=== PATIENT | male | born 1970 | race Caucasian/White ===

== ENCOUNTER 2019-04-04 10:15 | Outpatient (RCR) | payer MEDICAID, SELFPAY ==
[2019-03-21 10:55] VITALS: BP 161/119; PULSE 99; RESP 20; TEMP 37.1
--- NOTE | 2019-03-21 13:06 | HP.PCM_ITS ---
(1) Ulcer of right lower extremity with fat layer exposed Status: Chronic Current Visit: Yes Code(s): L97.912 - Non-pressure chronic ulcer of unspecified part of right lower leg with fat layer exposed (2) Bilateral edema of lower extremity Status: Chronic Current Visit: Yes Code(s): R60.0 - Localized edema (3) Morbid obesity Status: Chronic Current Visit: Yes Code(s): E66.01 - Morbid (severe) obesity due to excess calories History of Present Illness Date of Service: 03/21/19 Chief Complaint: Non healing right leg ulcer. History of Wound: Mr. Brunner is a 48-year-old who presents to the wound center due to nonhealing right leg ulcer. Said to have been present for about 6 to 8 weeks. Denies any known precepitating factor but worsened after bumping it. He was seen by his primary care physician and started on antibiotics per patient after culture was taken however, no significant improvement was noted. Denies any known history of diabetes mellitus. Also denies tobacco abuse. Feels well otherwise at this time. Past Medical History Past Medical History: Chronic Problems (Last Updated 06/14/17 @ 09:55 by Isabel Kaur) Ulcer of right lower extremity with fat layer exposed (Chronic) Bilateral edema of lower extremity (Chronic) Morbid obesity (Chronic) Peripheral edema (Chronic) Hypertension (Chronic) Acute on chronic diastolic (congestive) heart failure (Chronic) Other secondary pulmonary hypertension (Chronic) Abnormal nuclear stress test (Chronic) Non-rheumatic tricuspid valve insufficiency (Chronic) Nonrheumatic mitral (valve) insufficiency (Chronic) Allergies/Adverse Reactions: Allergies No Known Allergies Allergy (Verified 03/21/19 11:17) Home Medications: Ambulatory Orders Medication Instructions Recorded colchicine 0.6 mg capsule 0.6 mg PO BID PRN 06/14/17 furosemide 40 mg tablet 40 mg PO QDAY 06/14/17 metoprolol tartrate 50 mg tablet 25 - 50 mg PO BID 06/14/17 Smoking Status: Never smoker Review of Systems Constitutional: Denies: Anorexia, Chills, Fever Eyes: Denies: Pain, Redness HEENT: Denies: Difficulty Swallowing Cardiovascular: Denies: Chest Pain, Chest Pressure Respiratory: Denies: Hemoptysis, Wheezing Gastrointestinal: Denies: Hematemesis, Vomiting Skin: Denies: Jaundice - Physical Exam Vital Signs Temp Pulse Resp BP 98.7 F 99 20 H 161/119 H 03/21/19 10:55 03/21/19 10:55 03/21/19 10:55 03/21/19 10:55 General: Alert, Oriented x3, Cooperative, No apparent distress HEENT: Atraumatic, Normocephalic Oral: Moist Mucosa Neck: Supple Lungs: Normal air movement Cardiovascular: Regular rate, Regular Rhythm, Normal S1, Normal S2 Abdomen: Non Tender, Obese Extremities: No cyanosis, Edema Skin: Ulcer/ Wound Wound Measurements and Assessment WC - Nurse 1 - General Ulcer Measurement Start: 03/21/19 10:55 Freq: Status: Active Protocol: Activity Type Activity Date Activity User E-Sign Co-Sign Detail Recorded Client Recorded Date Recorded By Document 03/21/19 10:55 [facility] [id number] 03/21/19 11:11 [facility] 03/21/19 10:55 Wound Center Nurse 1 [Ulcer Assessment] #1- R VALE CLUSTER -Combined with other wound No -Current Size (cm) - Length 8.9 -Current Size (cm) - Width 6.1 -Current Size (cm) - Depth 0.1 -Total Square Cm 54.29 -Date of Last Picture (Recall this 03/21/19 field) -Photo Taken Yes -Epithelialization None Present -Tunneling No -Undermining/Tunneling No -Circular Undermining No -Exudate Amt Medium -Exudate Type Serous -Wound Margin Flat & Intact -Granulation Amt Medium (34-66%) -Granulation Quality Red -Slough/Fibrin Yes -Necrosis Amt Medium (34-66%) -Necrotic Tissue Type Adherent Slough -Texture (Echo-wound Skin Appearance) Assessed, Excoriation, Scarring -Moisture (Echo-wound Skin Appearance Assessed, ) Maceration -Color (Echo-wound Skin Appearance) Assessed, Erythema,Palor -Temperature (Echo-wound Skin No Abnormality Appearance) (Pt Warm) -Tenderness on Palpation (Echo-wound No Skin Appearance) -Ulcer Cleansing Rinsed/ Irrigated with Saline -Foul Odor after Cleansing No -Anesthetic Used 4% Lidocaine Solution [Edema Assessment] -Lower Limb Edema Present Yes -Right Calf (cm) 57 -Right Ankle (cm) 34.6 -Left Calf (cm) 56.6 -Left Ankle (cm) 34.6 WC - Nurse 2 - General Ulcer CM Notes Start: 03/21/19 10:55 Freq: Status: Active Protocol: Activity Type Activity Date Activity User E-Sign Co-Sign Detail Recorded Client Recorded Date Recorded By Document 03/21/19 11:39 MW [id number] 03/21/19 11:43 MW 03/21/19 11:39 Wound Center Nurse 2 [Procedure/Treatment] #1- R AKANKSHA CLUSTER -Time 11:39 -Correct Patient Yes -Correct Side, Site, Position Yes -Correct Procedure Yes -Procedure Performed Yes -Type of Procedure Debridement -Clinical Debridement Subcutaneous -Post Debridement Size (cm) - Length 9.0 -Post Debridement Size (cm) - Width 6.5 -Post Debridement Size (cm) - Depth 0.1 -Total Square Cm 58.50 -Wound/Ulcer Outcome Not Healed -Ulcer Cleansing Rinsed/ Irrigated with Saline -Foul Odor after Cleansing No -Bioengineered Tissue No -Bleeding Controlled with Pressure -Offloading No -Treatment Response Procedure Tolerated Well [See Physician Procedure note for Specifics] Pain Scale: 0-10 Numeric [Pain] -Is Patient Pain Free? Yes Musculoskeletal: No Muscle Wasting Neurological: Cranial nerves II-XII grossly intact Psych/Mental Status: Normal Affect Debridement Note Post-Debridement Measurements/Treatment WC - Nurse 2 - General Ulcer CM Notes Start: 03/21/19 10:55 Freq: Status: Active Protocol: Activity Type Activity Date Activity User E-Sign Co-Sign Detail Recorded Client Recorded Date Recorded By Document 03/21/19 11:39 MW [id number] 03/21/19 11:43 MW 03/21/19 11:39 Wound Center Nurse 2 #1- R VALE CLUSTER -Time 11:39 -Correct Patient Yes -Correct Side, Site, Position Yes -Correct Procedure Yes -Procedure Performed Yes -Type of Procedure Debridement -Clinical Debridement Subcutaneous -Post Debridement Size (cm) - Length 9.0 -Post Debridement Size (cm) - Width 6.5 -Post Debridement Size (cm) - Depth 0.1 -Total Square Cm 58.50 -Wound/Ulcer Outcome Not Healed -Ulcer Cleansing Rinsed/ Irrigated with Saline -Foul Odor after Cleansing No -Bioengineered Tissue No -Bleeding Controlled with Pressure -Offloading No -Treatment Response Procedure Tolerated Well Pain Scale: 0-10 Numeric Is Patient Pain Free? Yes Wound debrided: Right leg Type of Debridement: Excisional debridement Anesthesia Used: 4% Lidocaine Solution Depth: Down to and including healthy tissue, in the subcutaneous layer Percentage of wound debrided: 100 Instrument Used: 5mm curette Tissue Removed: Slough and devitalized tissue Severity: Fat Layer Exposed Amount of bleeding with debridement: Mild Bleeding Controlled with: Pressure Patient tolerated procedure well Assessment/Plan Active Problems (Last Updated 06/14/17 @ 09:55 by Isabel Kaur) Ulcer of right lower extremity with fat layer exposed (Chronic) Bilateral edema of lower extremity (Chronic) Morbid obesity (Chronic) Assessment: Nonhealing right lower extremity ulcer. Bilateral lower extremity edema. History of hypertension and morbid obesity. Plan: Debridement done as documented above. Procedure was well-tolerated. No cultures taken today. Will reassess need for at next visit. Venous and arterial studies ordered. Records also requested. Aquacel extra with ABD over top. 3M wraps for edema management. Leave in place till Monday for nurse visit/change. He was advised to elevate his lower extremities when seated and in bed. Avoid idle standing. Exercise as tolerated and weight loss also recommended. His questions were answered and he was advised to call with any further questions or concerns. Follow-up in a week with me. This note was generated with [employer] dictation software. It may contain incorrect words, spelling, and punctuation that were not noted in checking the note before signing. Multi Select Codes - Visit Charges Office Visit/Consults: 37531 OV L4 Est - Integumentary Integumentary CPT Codes: 15583 Madelaine subq tissue 20 sq cm/<
[2019-03-25 09:51] VITALS: BP 181/34; PULSE 123; RESP 18; TEMP 36.3
--- NOTE | 2019-03-28 08:13 | ART_ITS ---
Reason For Study: Leg ulcer Procedure A bilateral lower extremity continuous wave Doppler with analog waveform analysis,segmental pressures,and ankle brachial indexes without exercise. Left Segmental Pressures Left brachial= 158mmHg. Left posterior tibial artery = 188mmHg. Left dorsalis pedis artery = 189mmHg. Left digit = 134 mmHg. The left dorsalis pedis waveforms are triphasic. The left posterior tibial artery waveforms are triphasic. Right Segmental Pressures Right brachial= 150mmHg. Right posterior tibial artery = 187mmHg. Right dorsalis pedis artery = 179mmHg. Right digit = 143 mmHg. The right dorsalis pedis waveforms are triphasic. The right posterior tibial artery waveforms are triphasic. Indices The right ankle brachial index by the dorsalis pedis is 1.13. The right ankle brachial index by the posterior tibial artery is 1.18. The right digital-brachial index is 0.91. The left ankle brachial index by the dorsalis pedis is 1.20. The left ankle brachial index by the posterior tibial artery is 1.19. The left digital-brachial index is 0.85. Interpretation Summary Triphasic Doppler waveforms are noted at ankle level bilaterally. Pulse-volume recording waveform amplitudes are satisfactory at calf and ankle level bilaterally, but diminished at digital level bilaterally. Resting ankle-brachial indices are normal bilaterally. Digital-brachial indices are normal bilaterally. There is no evidence of significant arterial occlusive disease in the lower extremities bilaterally. Ordering Physician: Tamica Gifford Referring Physician: Cruz Mora Performed By: Amber Andino RVT
--- NOTE | 2019-03-28 08:13 | VDLE_ITS ---
Reason For Study: Edema RIGHT LEFT FV is compressible, spontaneous, phasic, FV is compressible, spontaneous, phasic, competent and demonstrates normal competent and demonstrates normal augmentation. augmentation. POP V is compressible, spontaneous, phasic, POP V is compressible, spontaneous, phasic, competent and demonstrates normal competent and demonstrates normal augmentation. augmentation. T/P Trunk is compressible. T/P Trunk is compressible. PTV is compressible. PTV is compressible. RT PerV is compressible. LT PerV is compressible. CFV and SFJ visualized with color and doppler CFV and SFJ visualized with color and doppler only. only. FV mid-dist visualized with color only. FV mid-dist visualized with color only. SFJ is competent and measures 1.34 x 1.64 cm. SFJ is competent and measures 1.21 x 1.28 cm. GSV proximal thigh measures 0.53 x 0.54 cm. GSV proximal thigh measures 0.61 x 0.59 cm. GSV at knee measures 0.59 x 0.58 cm. GSV above knee is competent. GSV INCOMPETENT throughout for greater than GSV at knee measures 0.42 x 0.48 cm. 0.5 seconds. GSV below knee is INCOMPETENT for greater ASV proximal thigh is INCOMPETENT for greater than 0.5 seconds. than 0.5 seconds and measures 0.49 x 0.49 cm. ASV proximal thigh is INCOMPETENT for greater ASV proximal calf is INCOMPETENT for greater than 0.5 seconds and measures 0.77 x 0.79 cm. than 0.5 seconds and measures 0.54 x 0.52 cm. SSV at junction is competent and measures SSV at junction is competent and measures 0.62 x 0.75 cm. 0.74 x 0.83 cm. Procedure Exam performed in department. Pt unable to tolerate compression in bilateral groin and mid-distal thigh. A preliminary report was called and/or faxed to . Interpretation Summary Deep veins of the lower extremities are patent bilaterally. There is no evidence of deep vein thrombosis on either side. Valvular competence appears intact within the proximal deep venous systems bilaterally. The great saphenous veins appear bilaterally patent and compressible segmentally. Sapheno-femoral junctions are bilaterally competent . The right great saphenous vein appears segmentally incompetent. The left great saphenous vein appears competent above the knee. The left great saphenous vein appears incompetent below the knee. Small saphenous veins are patent and competent bilaterally. Incompetent accessory saphenous veins are noted in the right proximal thigh and proximal calf. An incompetent accessory saphenous vein is noted in the left proximal thigh. Ordering Physician: Tamica Gifford Referring Physician: Cruz Mora Performed By: Amber Andino RVT
[2019-03-28 10:08] VITALS: BP 167/120; PULSE 119; RESP 18; TEMP 35.8
--- NOTE | 2019-03-28 10:42 | PN.PCM_ITS ---
(1) Ulcer of right lower extremity with fat layer exposed Status: Chronic Current Visit: Yes Code(s): L97.912 - Non-pressure chronic ulcer of unspecified part of right lower leg with fat layer exposed (2) Bilateral edema of lower extremity Status: Chronic Current Visit: Yes Code(s): R60.0 - Localized edema (3) Morbid obesity Status: Chronic Current Visit: Yes Code(s): E66.01 - Morbid (severe) obesity due to excess calories Type of Wound Date of Service: 03/28/19 Chief Complaint: Non healing right leg ulcer. History of Wound: Mr. Brunner is a 48-year-old who presents to the wound center due to nonhealing right leg ulcer. Said to have been present for about 6 to 8 weeks. Denies any known precepitating factor but worsened after bumping it. He was seen by his primary care physician and started on antibiotics per patient after culture was taken however, no significant improvement was noted. Denies any known history of diabetes mellitus. Also denies tobacco abuse. Feels well otherwise at this time. Progress of Wound: Improving. No new concerns at this time. - Physical Exam Vital Signs Temp Pulse Resp BP 96.5 F L 119 H 18 167/120 H 03/28/19 10:08 03/28/19 10:08 03/28/19 10:08 03/28/19 10:08 General: Alert, Oriented x3, Cooperative, No apparent distress HEENT: Atraumatic, Normocephalic Oral: Moist Mucosa Neck: Supple Abdomen: Non Tender, Obese Extremities: Edema Skin: Ulcer/ Wound Wound Measurements and Assessment WC - Nurse 1 - General Ulcer Measurement Start: 03/21/19 10:55 Freq: Status: Active Protocol: Activity Type Activity Date Activity User E-Sign Co-Sign Detail Recorded Client Recorded Date Recorded By Document 03/25/19 09:51 DL [id number] 03/25/19 10:11 DL Document 03/28/19 10:08 BM [id number] 03/28/19 10:21 BMF 03/25/19 03/28/19 09:51 10:08 Wound Center Nurse 1 [Ulcer Assessment] #1- R VALE CLUSTER -Combined with other wound No -Current Size (cm) - Length 11.2 -Current Size (cm) - Width 8.8 -Current Size (cm) - Depth 0.1 -Total Square Cm 98.56 -Photo Taken No -Epithelialization None Present -Tunneling No -Undermining/Tunneling No -Circular Undermining No -Exudate Amt Small Medium -Exudate Type Serosanguineous Serosanguineous -Wound Margin Distinct, Flat & Intact Outline Attached -Granulation Amt None Present (0 Small (1-33%) %) -Granulation Quality Red -Slough/Fibrin Yes -Necrosis Amt Large (67-100%) Large (67-100%) -Necrotic Tissue Type Adherent Slough Adherent Slough -Structure Exposed N/A -Texture (Echo-wound Skin Appearance) Scarring Assessed, Scarring -Moisture (Echo-wound Skin Appearance Dry/Scaly Assessed,Dry/ ) Scaly -Color (Echo-wound Skin Appearance) Hemosiderin Assessed, Staining Hemosiderin Staining -Temperature (Echo-wound Skin No Abnormality No Abnormality Appearance) (Pt Warm) (Pt Warm) -Tenderness on Palpation (Echo-wound No Yes Skin Appearance) -Ulcer Cleansing Wound Cleanser Rinsed/ Irrigated with Saline -Foul Odor after Cleansing No No -Anesthetic Used 4% Lidocaine Solution [Edema Assessment] -Lower Limb Edema Present Yes -Right Calf (cm) 53 53.8 -Right Ankle (cm) 33.8 32.6 WC - Nurse 2 - General Ulcer CM Notes Start: 03/21/19 10:55 Freq: Status: Active Protocol: Activity Type Activity Date Activity User E-Sign Co-Sign Detail Recorded Client Recorded Date Recorded By Document 03/28/19 10:38 MW [id number] 03/28/19 10:41 MW 03/28/19 10:38 Wound Center Nurse 2 [Procedure/Treatment] #1- R VALE CLUSTER -Time 10:39 -Correct Patient Yes -Correct Side, Site, Position Yes -Correct Procedure Yes -Procedure Performed Yes -Type of Procedure Debridement -Clinical Debridement Subcutaneous -Post Debridement Size (cm) - Length 8.5 -Post Debridement Size (cm) - Width 4.5 -Post Debridement Size (cm) - Depth 0.1 -Total Square Cm 38.25 -Wound/Ulcer Outcome Not Healed -Ulcer Cleansing Rinsed/ Irrigated with Saline -Foul Odor after Cleansing No -Bioengineered Tissue No -Bleeding Controlled with Pressure -Offloading No -Treatment Response Procedure Tolerated Well [See Physician Procedure note for Specifics] Pain Scale: 0-10 Numeric [Pain] -Is Patient Pain Free? Yes Musculoskeletal: No Muscle Wasting Neurological: Cranial nerves II-XII grossly intact Psych/Mental Status: Normal Affect Debridement Note Post-Debridement Measurements/Treatment WC - Nurse 2 - General Ulcer CM Notes Start: 03/21/19 10:55 Freq: Status: Active Protocol: Activity Type Activity Date Activity User E-Sign Co-Sign Detail Recorded Client Recorded Date Recorded By Document 03/21/19 11:39 MW [id number] 03/21/19 11:43 MW Document 03/28/19 10:38 MW [id number] 03/28/19 10:41 MW 03/21/19 03/28/19 11:39 10:38 Wound Center Nurse 2 #1- R VALE CLUSTER -Time 11:39 10:39 -Correct Patient Yes Yes -Correct Side, Site, Position Yes Yes -Correct Procedure Yes Yes -Procedure Performed Yes Yes -Type of Procedure Debridement Debridement -Clinical Debridement Subcutaneous Subcutaneous -Post Debridement Size (cm) - Length 9.0 8.5 -Post Debridement Size (cm) - Width 6.5 4.5 -Post Debridement Size (cm) - Depth 0.1 0.1 -Total Square Cm 58.50 38.25 -Wound/Ulcer Outcome Not Healed Not Healed -Ulcer Cleansing Rinsed/ Rinsed/ Irrigated with Irrigated with Saline Saline -Foul Odor after Cleansing No No -Bioengineered Tissue No No -Bleeding Controlled with Pressure Pressure -Offloading No No -Treatment Response Procedure Procedure Tolerated Well Tolerated Well Pain Scale: 0-10 Numeric Is Patient Pain Free? Yes Yes Wound debrided: Right Leg Type of Debridement: Excisional debridement Anesthesia Used: 4% Lidocaine Solution Depth: Down to and including healthy tissue, in the subcutaneous layer Percentage of wound debrided: 100 Instrument Used: 7mm curette Tissue Removed: Slough and devitalized tissue Severity: Fat Layer Exposed Amount of bleeding with debridement: Mild Bleeding Controlled with: Pressure Patient tolerated procedure well Assessment/Plan Active Problems (Last Updated 06/14/17 @ 09:55 by Isabel Kaur) Ulcer of right lower extremity with fat layer exposed (Chronic) Bilateral edema of lower extremity (Chronic) Morbid obesity (Chronic) Assessment: Nonhealing right lower extremity ulcer. Bilateral lower extremity edema. History of hypertension and morbid obesity. Plan: Debridement done as documented above. Procedure was well tolerated. Improving. Venous and arterial studies ordered at last visit, awaiting result. Continue Aquacel extra with ABD over top. 3M wraps for edema management. Leave in place till Monday for nurse visit/change. He was advised to elevate his lower extremities when seated and in bed. Avoid idle standing. Exercise as tolerated and weight loss also recommended. His questions were answered and he was advised to call with any further questions or concerns. Follow-up in a week with me. This note was generated with [employer] dictation software. It may contain incorrect words, spelling, and punctuation that were not noted in checking the note before signing. Code Visit 111xxx-[id number]: 29358 Madelaine subq tissue 20 sq cm/< - additional sq cm debrided. Please refer to clinical note.
[2019-04-01 13:25] VITALS: BP 178/113; PULSE 115; RESP 18; TEMP 36.2
[2019-04-04 10:36] VITALS: BP 163/112; PULSE 105; RESP 18; TEMP 36.7
--- NOTE | 2019-04-04 13:09 | PN.PCM_ITS ---
(1) Ulcer of right lower extremity with fat layer exposed Status: Chronic Current Visit: Yes Code(s): L97.912 - Non-pressure chronic ulcer of unspecified part of right lower leg with fat layer exposed (2) Bilateral edema of lower extremity Status: Chronic Current Visit: Yes Code(s): R60.0 - Localized edema (3) Morbid obesity Status: Chronic Current Visit: Yes Code(s): E66.01 - Morbid (severe) obesity due to excess calories Type of Wound Date of Service: 04/04/19 Chief Complaint: Non healing right leg ulcer. History of Wound: Mr. Brunner is a 48-year-old who presents to the wound center due to nonhealing right leg ulcer. Said to have been present for about 6 to 8 weeks. Denies any known precepitating factor but worsened after bumping it. He was seen by his primary care physician and started on antibiotics per patient after culture was taken however, no significant improvement was noted. Denies any known history of diabetes mellitus. Also denies tobacco abuse. Feels well otherwise at this time. Progress of Wound: Minimal Improvement. No new concerns. - Physical Exam Vital Signs Temp Pulse Resp BP 98.1 F 105 H 18 163/112 H 04/04/19 10:36 04/04/19 10:36 04/04/19 10:36 04/04/19 10:36 General: Alert, Oriented x3, Cooperative, No apparent distress HEENT: Atraumatic, Normocephalic Oral: Moist Mucosa Neck: Supple Lungs: Normal air movement Abdomen: Non Tender, Obese Extremities: No cyanosis, Edema Skin: Ulcer/ Wound Wound Measurements and Assessment WC - Nurse 1 - General Ulcer Measurement Start: 03/21/19 10:55 Freq: Status: Active Protocol: Activity Type Activity Date Activity User E-Sign Co-Sign Detail Recorded Client Recorded Date Recorded By Document 04/01/19 13:25 MW [id number] 04/01/19 13:33 MW Document 04/04/19 10:36 RB [id number] 04/04/19 10:38 RB 04/01/19 04/04/19 13:25 10:36 Wound Center Nurse 1 [Ulcer Assessment] #1- R VALE CLUSTER -Combined with other wound No No -Current Size (cm) - Length 8.5 -Current Size (cm) - Width 5.5 -Current Size (cm) - Depth 0.1 -Total Square Cm 46.75 -Tunneling No -Undermining/Tunneling No -Circular Undermining No -Exudate Amt Medium -Exudate Type Serosanguineous -Wound Margin Flat & Intact -Granulation Amt Medium (34-66%) -Granulation Quality [place] -Slough/Fibrin Yes -Necrosis Amt Small (1-33%) -Necrotic Tissue Type Adherent Slough -Structure Exposed N/A -Texture (Echo-wound Skin Appearance) Assessed -Moisture (Echo-wound Skin Appearance Maceration ) -Color (Echo-wound Skin Appearance) Assessed -Temperature (Echo-wound Skin No Abnormality Appearance) (Pt Warm) -Tenderness on Palpation (Echo-wound No Skin Appearance) -Ulcer Cleansing Wound Cleanser -Foul Odor after Cleansing No -Anesthetic Used 4% Lidocaine Solution [Edema Assessment] -Lower Limb Edema Present Yes Yes -Right Calf (cm) 53.5 52.5 -Right Ankle (cm) 34.5 33 WC - Nurse 2 - General Ulcer CM Notes Start: 03/21/19 10:55 Freq: Status: Active Protocol: Activity Type Activity Date Activity User E-Sign Co-Sign Detail Recorded Client Recorded Date Recorded By Document 04/04/19 11:14 MW [id number] 04/04/19 11:17 MW 04/04/19 11:14 Wound Center Nurse 2 [Procedure/Treatment] #1- R VALE CLUSTER -Time 11:16 -Correct Patient Yes -Correct Side, Site, Position Yes -Correct Procedure Yes -Procedure Performed Yes -Type of Procedure Debridement -Clinical Debridement Subcutaneous -Post Debridement Size (cm) - Length 8.0 -Post Debridement Size (cm) - Width 4.5 -Post Debridement Size (cm) - Depth 0.1 -Total Square Cm 36.00 -Wound/Ulcer Outcome Not Healed -Ulcer Cleansing Rinsed/ Irrigated with Saline -Foul Odor after Cleansing No -Bioengineered Tissue No -Bleeding Controlled with Pressure -Offloading No -Treatment Response Procedure Tolerated Well [See Physician Procedure note for Specifics] Pain Scale: 0-10 Numeric [Pain] -Is Patient Pain Free? Yes Musculoskeletal: No Muscle Wasting Neurological: Cranial nerves II-XII grossly intact Psych/Mental Status: Normal Affect Debridement Note Post-Debridement Measurements/Treatment WC - Nurse 2 - General Ulcer CM Notes Start: 03/21/19 10:55 Freq: Status: Active Protocol: Activity Type Activity Date Activity User E-Sign Co-Sign Detail Recorded Client Recorded Date Recorded By Document 03/21/19 11:39 MW [id number] 03/21/19 11:43 MW Document 03/28/19 10:38 MW [id number] 03/28/19 10:41 MW Document 04/04/19 11:14 MW [id number] 04/04/19 11:17 MW 03/21/19 03/28/19 04/04/19 11:39 10:38 11:14 Wound Center Nurse 2 #1- R VALE CLUSTER -Time 11:39 10:39 11:16 -Correct Patient Yes Yes Yes -Correct Side, Site, Position Yes Yes Yes -Correct Procedure Yes Yes Yes -Procedure Performed Yes Yes Yes -Type of Procedure Debridement Debridement Debridement -Clinical Debridement Subcutaneous Subcutaneous Subcutaneous -Post Debridement Size (cm) - Length 9.0 8.5 8.0 -Post Debridement Size (cm) - Width 6.5 4.5 4.5 -Post Debridement Size (cm) - Depth 0.1 0.1 0.1 -Total Square Cm 58.50 38.25 36.00 -Wound/Ulcer Outcome Not Healed Not Healed Not Healed -Ulcer Cleansing Rinsed/ Rinsed/ Rinsed/ Irrigated with Irrigated with Irrigated with Saline Saline Saline -Foul Odor after Cleansing No No No -Bioengineered Tissue No No No -Bleeding Controlled with Pressure Pressure Pressure -Offloading No No No -Treatment Response Procedure Procedure Procedure Tolerated Well Tolerated Well Tolerated Well Pain Scale: 0-10 Numeric Is Patient Pain Free? Yes Yes Yes Wound debrided: Right Leg Type of Debridement: Excisional debridement Anesthesia Used: 4% Lidocaine Solution Depth: Down to and including healthy tissue, in the subcutaneous layer Percentage of wound debrided: 100 Instrument Used: 5mm curette Tissue Removed: Slough and devitalized tissue Severity: Fat Layer Exposed Amount of bleeding with debridement: Mild Bleeding Controlled with: Pressure Patient tolerated procedure well Assessment/Plan Active Problems (Last Updated 06/14/17 @ 09:55 by Isabel Kaur) Ulcer of right lower extremity with fat layer exposed (Chronic) Bilateral edema of lower extremity (Chronic) Morbid obesity (Chronic) Assessment: Nonhealing right lower extremity ulcer. Bilateral lower extremity edema. History of hypertension and morbid obesity. Plan: Debridement done as documented above. Procedure was well tolerated. No sgnificnat change in the past week. Cultures taken. Switch to Fibrochol with adaptic over top. Continue 3M wraps for edema management. Leave in place for a week. He was advised to elevate his lower extremities when seated and in bed. Avoid idle standing. Exercise as tolerated and weight loss also recommended. His questions were answered and he was advised to call with any further questions or concerns. He states that he is scheduled to follow up with his PCP on Monday for his chronically elevated BP. Follow-up in a week.. This note was generated with [employer] dictation software. It may contain incorrect words, spelling, and punctuation that were not noted in checking the note before signing. Code Visit 111xxx-113xx: 38247 Madelaine subq tissue 20 sq cm/< - 16 additional sq cm debrided. Total debrided 36 sq cm
== END 2019-04-06 23:59 ==
LOC: WC 10:15
PROVIDERS: PCP Nurse Practitioner Primary Care; Referring Provider Internal Medicine; Visit Provider Internal Medicine
DX: L97.812 Non-pressure chronic ulcer of other part of right lower leg with fat layer exposed (principal); E66.01 Morbid (severe) obesity due to excess calories; R60.0 Localized edema; I11.0 Hypertensive heart disease with heart failure; I50.32 Chronic diastolic (congestive) heart failure; I27.29 Other secondary pulmonary hypertension
CPT/HCPCS: 11042; 11045; 29581; 87070; 87075; 87077; 87186; 87205; 93923; 93970; 99212; 99213; G0463

== ENCOUNTER 2019-05-02 09:30 | Outpatient (RCR) | payer MEDICAID, SELFPAY ==
[2019-04-07 01:06] VITALS: BP 163/112; PULSE 105; RESP 18; TEMP 36.7
[2019-04-11 10:55] VITALS: BP 140/113; PULSE 111; RESP 22; TEMP 36.9
--- NOTE | 2019-04-11 11:48 | PN.PCM_ITS ---
(1) Ulcer of right lower extremity with fat layer exposed Status: Chronic Current Visit: Yes Code(s): L97.912 - Non-pressure chronic ulcer of unspecified part of right lower leg with fat layer exposed (2) Bilateral edema of lower extremity Status: Chronic Current Visit: Yes Code(s): R60.0 - Localized edema (3) Peripheral edema Status: Chronic Current Visit: Yes Code(s): R60.9 - Edema, unspecified Type of Wound Date of Service: 04/11/19 Chief Complaint: Non healing right leg ulcer. History of Wound: Mr. Brunner is a 48-year-old who presents to the wound center due to nonhealing right leg ulcer. Said to have been present for about 6 to 8 weeks. Denies any known precepitating factor but worsened after bumping it. He was seen by his primary care physician and started on antibiotics per patient after culture was taken however, no significant improvement was noted. Denies any known history of diabetes mellitus. Also denies tobacco abuse. Feels well otherwise at this time. Progress of Wound: Improving. He however reports increased drainage and pain. - Physical Exam Vital Signs Temp Pulse Resp BP 98.5 F 111 H 22 H 140/113 H 04/11/19 10:55 04/11/19 10:55 04/11/19 10:55 04/11/19 10:55 General: Alert, Oriented x3, Cooperative, No apparent distress HEENT: Atraumatic, Normocephalic Oral: Moist Mucosa Neck: Supple Abdomen: Non Tender, Obese Skin: Ulcer/ Wound Wound Measurements and Assessment WC - Nurse 1 - General Ulcer Measurement Start: 04/11/19 10:55 Freq: Status: Active Protocol: Activity Type Activity Date Activity User E-Sign Co-Sign Detail Recorded Client Recorded Date Recorded By Document 04/11/19 10:55 DL [id number] 04/11/19 11:06 DL 04/11/19 10:55 Wound Center Nurse 1 [Ulcer Assessment] #1- R VALE CLUSTER -Current Size (cm) - Length 5.5 -Current Size (cm) - Width 4.2 -Current Size (cm) - Depth 0.1 -Total Square Cm 23.10 -Photo Taken No -Exudate Amt Medium -Exudate Type Serosanguineous -Wound Margin Distinct, Outline Attached -Granulation Amt Medium (34-66%) -Granulation Quality Red -Necrosis Amt Medium (34-66%) -Necrotic Tissue Type Adherent Slough -Structure Exposed N/A -Texture (Echo-wound Skin Appearance) Scarring -Moisture (Echo-wound Skin Appearance Dry/Scaly ) -Color (Echo-wound Skin Appearance) Hemosiderin Staining -Temperature (Echo-wound Skin No Abnormality Appearance) (Pt Warm) -Tenderness on Palpation (Echo-wound No Skin Appearance) -Ulcer Cleansing Wound Cleanser -Foul Odor after Cleansing No -Anesthetic Used 4% Lidocaine Solution [Edema Assessment] -Right Calf (cm) 52 -Right Ankle (cm) 31.5 WC - Nurse 2 - General Ulcer CM Notes Start: 04/11/19 10:55 Freq: Status: Active Protocol: Activity Type Activity Date Activity User E-Sign Co-Sign Detail Recorded Client Recorded Date Recorded By Document 04/11/19 11:24 MW [id number] 04/11/19 11:29 MW 04/11/19 11:24 Wound Center Nurse 2 [Procedure/Treatment] #1- R VALE CLUSTER -Time 11:25 -Correct Patient Yes -Correct Side, Site, Position Yes -Correct Procedure Yes -Procedure Performed Yes -Type of Procedure Debridement -Clinical Debridement Subcutaneous -Post Debridement Size (cm) - Length 3.3 -Post Debridement Size (cm) - Width 2.5 -Post Debridement Size (cm) - Depth 0.1 -Total Square Cm 8.25 -Wound/Ulcer Outcome Not Healed -Ulcer Cleansing Rinsed/ Irrigated with Saline -Foul Odor after Cleansing No -Bioengineered Tissue No -Bleeding Controlled with Pressure -Offloading No -Treatment Response Procedure Tolerated Well [See Physician Procedure note for Specifics] Pain Scale: 0-10 Numeric [Pain] -Is Patient Pain Free? Yes Musculoskeletal: No Muscle Wasting Neurological: Cranial nerves II-XII grossly intact Psych/Mental Status: Normal Affect Debridement Note Post-Debridement Measurements/Treatment WC - Nurse 2 - General Ulcer CM Notes Start: 04/11/19 10:55 Freq: Status: Active Protocol: Activity Type Activity Date Activity User E-Sign Co-Sign Detail Recorded Client Recorded Date Recorded By Document 04/11/19 11:24 MW [id number] 04/11/19 11:29 MW 04/11/19 11:24 Wound Center Nurse 2 #1- R VALE CLUSTER -Time 11:25 -Correct Patient Yes -Correct Side, Site, Position Yes -Correct Procedure Yes -Procedure Performed Yes -Type of Procedure Debridement -Clinical Debridement Subcutaneous -Post Debridement Size (cm) - Length 3.3 -Post Debridement Size (cm) - Width 2.5 -Post Debridement Size (cm) - Depth 0.1 -Total Square Cm 8.25 -Wound/Ulcer Outcome Not Healed -Ulcer Cleansing Rinsed/ Irrigated with Saline -Foul Odor after Cleansing No -Bioengineered Tissue No -Bleeding Controlled with Pressure -Offloading No -Treatment Response Procedure Tolerated Well Pain Scale: 0-10 Numeric Is Patient Pain Free? Yes Wound debrided: Right leg Type of Debridement: Excisional debridement Anesthesia Used: 4% Lidocaine Solution Depth: Down to and including healthy tissue, in the subcutaneous layer Percentage of wound debrided: 100 Instrument Used: 5mm curette Tissue Removed: Slough and devitalized tissue Severity: Fat Layer Exposed Amount of bleeding with debridement: Mild Bleeding Controlled with: Pressure Patient tolerated procedure well Assessment/Plan Active Problems (Last Updated 06/14/17 @ 09:55 by Isabel Kaur) Ulcer of right lower extremity with fat layer exposed (Chronic) Bilateral edema of lower extremity (Chronic) Peripheral edema (Chronic) Assessment: Nonhealing right lower extremity ulcer. Bilateral lower extremity edema. History of hypertension and morbid obesity. Plan: Debridement done as documented above. Procedure was well tolerated. Improving. However, due to increased drainage and pain will start on Levofloxacin per culture and sensitivity. Continue Fibrocol and 3M wraps for edema management. Leave in place for a week. He was advised to elevate his lo wer extremities when seated and in bed. Avoid idle standing. Exercise as tolerated and weight loss also recommended. His questions were answered and he was advised to call with any further questions or concerns. Follow-up in a week for a nurse visit and in 2 weeks with me. This note was generated with [employer] dictation software. It may contain incorrect words, spelling, and punctuation that were not noted in checking the note before signing. 111xxx-113xx: [id number] Madelaine subq tissue 20 sq cm/<
[2019-04-25 11:11] VITALS: BP 136/94; PULSE 82; RESP 18; TEMP 37.1
--- NOTE | 2019-04-25 12:23 | PN.PCM_ITS ---
(1) Ulcer of right lower extremity with fat layer exposed Status: Chronic Current Visit: Yes Code(s): L97.912 - Non-pressure chronic ulcer of unspecified part of right lower leg with fat layer exposed (2) Bilateral edema of lower extremity Status: Chronic Current Visit: Yes Code(s): R60.0 - Localized edema (3) Peripheral edema Status: Chronic Current Visit: Yes Code(s): R60.9 - Edema, unspecified Type of Wound Date of Service: 04/25/19 Chief Complaint: Non healing right leg ulcer. History of Wound: Mr. Brunner is a 48-year-old who presents to the wound center due to nonhealing right leg ulcer. Said to have been present for about 6 to 8 weeks. Denies any known precepitating factor but worsened after bumping it. He was seen by his primary care physician and started on antibiotics per patient after culture was taken however, no significant improvement was noted. Denies any known history of diabetes mellitus. Also denies tobacco abuse. Feels well otherwise at this time. Progress of Wound: Improved. Has completed his antibiotics. - Physical Exam Vital Signs Temp Pulse Resp BP 98.8 F 82 18 136/94 H 04/25/19 11:11 04/25/19 11:11 04/25/19 11:11 04/25/19 11:11 General: Alert, Oriented x3, Cooperative, No apparent distress HEENT: Atraumatic, Normocephalic Neck: Supple Lungs: Normal air movement Abdomen: Non Tender, Obese Extremities: No cyanosis, Edema Wound Measurements and Assessment WC - Nurse 1 - General Ulcer Measurement Start: 04/11/19 10:55 Freq: Status: Active Protocol: Activity Type Activity Date Activity User E-Sign Co-Sign Detail Recorded Client Recorded Date Recorded By Document 04/25/19 11:11 RB [id number] 04/25/19 11:15 RB 04/25/19 11:11 Wound Center Nurse 1 [Ulcer Assessment] #1- R VALE CLUSTER -Combined with other wound No -Current Size (cm) - Length 0.1 -Current Size (cm) - Width 0.1 -Current Size (cm) - Depth 0.1 -Total Square Cm 0.01 -Tunneling No -Undermining/Tunneling No -Circular Undermining No -Exudate Amt None Present -Granulation Amt Large (67-100%) -Granulation Quality [place],Red -Slough/Fibrin No -Necrosis Amt None Present (0 %) -Structure Exposed N/A -Texture (Echo-wound Skin Appearance) Assessed -Moisture (Echo-wound Skin Appearance Assessed,Dry/ ) Scaly -Color (Echo-wound Skin Appearance) Assessed -Temperature (Echo-wound Skin No Abnormality Appearance) (Pt Warm) -Tenderness on Palpation (Echo-wound No Skin Appearance) -Ulcer Cleansing Wound Cleanser -Foul Odor after Cleansing No -Anesthetic Used 4% Lidocaine Solution [Edema Assessment] -Lower Limb Edema Present Yes -Right Calf (cm) 51.2 -Right Ankle (cm) 32 WC - Nurse 2 - General Ulcer CM Notes Start: 04/11/19 10:55 Freq: Status: Active Protocol: Activity Type Activity Date Activity User E-Sign Co-Sign Detail Recorded Client Recorded Date Recorded By Document 04/25/19 11:21 MW [id number] 04/25/19 11:22 MW 04/25/19 11:21 Wound Center Nurse 2 [Procedure/Treatment] #1- R VALE CLUSTER -Time 11:21 -Correct Patient Yes -Correct Side, Site, Position Yes -Correct Procedure Yes -Procedure Performed No -Post Debridement Size (cm) - Length 0.1 -Post Debridement Size (cm) - Width 0.1 -Post Debridement Size (cm) - Depth 0.1 -Total Square Cm 0.01 -Wound/Ulcer Outcome Not Healed -Ulcer Cleansing Not Cleansed -Foul Odor after Cleansing No -Bioengineered Tissue No -Bleeding Controlled with NA -Offloading No -Treatment Response Procedure Tolerated Well [See Physician Procedure note for Specifics] Pain Scale: 0-10 Numeric [Pain] -Is Patient Pain Free? Yes Musculoskeletal: No Muscle Wasting Neurological: Cranial nerves II-XII grossly intact Psych/Mental Status: Normal Affect Debridement Note Post-Debridement Measurements/Treatment WC - Nurse 2 - General Ulcer CM Notes Start: 04/11/19 10:55 Freq: Status: Active Protocol: Activity Type Activity Date Activity User E-Sign Co-Sign Detail Recorded Client Recorded Date Recorded By Document 04/11/19 11:24 MW [id number] 04/11/19 11:29 MW Document 04/25/19 11:21 MW [id number] 04/25/19 11:22 MW 04/11/19 04/25/19 11:24 11:21 Wound Center Nurse 2 #1- R AKANKSHA CLUSTER -Time 11:25 11:21 -Correct Patient Yes Yes -Correct Side, Site, Position Yes Yes -Correct Procedure Yes Yes -Procedure Performed Yes No -Type of Procedure Debridement -Clinical Debridement Subcutaneous -Post Debridement Size (cm) - Length 5.3 0.1 -Post Debridement Size (cm) - Width 2.5 0.1 -Post Debridement Size (cm) - Depth 0.1 0.1 -Total Square Cm 13.25 0.01 -Wound/Ulcer Outcome Not Healed Not Healed -Ulcer Cleansing Rinsed/ Not Cleansed Irrigated with Saline -Foul Odor after Cleansing No No -Bioengineered Tissue No No -Bleeding Controlled with Pressure NA -Offloading No No -Treatment Response Procedure Procedure Tolerated Well Tolerated Well Pain Scale: 0-10 Numeric Is Patient Pain Free? Yes Yes No debridement was completed today Assessment/Plan Active Problems (Last Updated 06/14/17 @ 09:55 by Isabel Kaur) Ulcer of right lower extremity with fat layer exposed (Chronic) Bilateral edema of lower extremity (Chronic) Peripheral edema (Chronic) Assessment: Nonhealing right lower extremity ulcer. Bilateral lower extremity edema. History of hypertension and morbid obesity. Plan: No debridement completed today. Very minimal area left. Adaptic and gauze over top. 3M wraps. Leave in place for a week. He was advised to elevate his lower extremities when seated and in bed. Avoid idle standing. Exercise as tolerated and weight loss also recommended. He was also advised to come in next week with his compression stockings. Anticipate discharge. His questions were answered and he was advised to call with any further questions or concerns. Follow-up in 1 week. This note was generated with [employer] dictation software. It may contain incorrect words, spelling, and punctuation that were not noted in checking the note before signing. Office Visits / Consults: [id number] OV L3 Est
[2019-05-02 09:37] VITALS: BP 140/101; PULSE 93; RESP 20; TEMP 36.6
--- NOTE | 2019-05-02 10:00 | PN.PCM_ITS ---
(1) Ulcer of right lower extremity with fat layer exposed Status: Chronic Current Visit: Yes Code(s): L97.912 - Non-pressure chronic ulcer of unspecified part of right lower leg with fat layer exposed (2) Bilateral edema of lower extremity Status: Chronic Current Visit: Yes Code(s): R60.0 - Localized edema (3) Peripheral edema Status: Chronic Current Visit: Yes Code(s): R60.9 - Edema, unspecified Type of Wound Date of Service: 05/02/19 Chief Complaint: Non healing right leg ulcer. History of Wound: Mr. Brunner is a 48-year-old who presents to the wound center due to nonhealing right leg ulcer. Said to have been present for about 6 to 8 weeks. Denies any known precepitating factor but worsened after bumping it. He was seen by his primary care physician and started on antibiotics per patient after culture was taken however, no significant improvement was noted. Denies any known history of diabetes mellitus. Also denies tobacco abuse. Feels well otherwise at this time. Progress of Wound: Healed. - Physical Exam Vital Signs Temp Pulse Resp BP 97.8 F 93 20 H 140/101 H 05/02/19 09:37 05/02/19 09:37 05/02/19 09:37 05/02/19 09:37 General: Alert, Oriented x3, Cooperative, No apparent distress HEENT: Atraumatic, Normocephalic Oral: Moist Mucosa Neck: Supple Abdomen: Non Tender, Obese Extremities: No cyanosis, Edema Wound Measurements and Assessment WC - Nurse 1 - General Ulcer Measurement Start: 04/11/19 10:55 Freq: Status: Active Protocol: Activity Type Activity Date Activity User E-Sign Co-Sign Detail Recorded Client Recorded Date Recorded By Document 05/02/19 09:37 [facility] [id number] 05/02/19 09:40 [facility] 05/02/19 09:37 Wound Center Nurse 1 [Ulcer Assessment] #1- R VALE CLUSTER -Current Size (cm) - Length 0 -Current Size (cm) - Width 0 -Current Size (cm) - Depth 0 -Total Square Cm 0 -Date of Last Picture (Recall this 05/02/19 field) -Photo Taken Yes -Epithelialization Large 67-100% -Exudate Amt None Present [Edema Assessment] -Lower Limb Edema Present Yes -Right Calf (cm) 48.4 -Right Ankle (cm) 31.4 - Nurse 2 - General Ulcer CM Notes Start: 04/11/19 10:55 Freq: Status: Active Protocol: Activity Type Activity Date Activity User E-Sign Co-Sign Detail Recorded Client Recorded Date Recorded By Document 05/02/19 09:50 MW [id number] 05/02/19 09:52 MW 05/02/19 09:50 Wound Center Nurse 2 [Procedure/Treatment] #1- R VALE CLUSTER -Time 09:51 -Correct Patient Yes -Correct Side, Site, Position Yes -Correct Procedure Yes -Procedure Performed No -Post Debridement Size (cm) - Length 0 -Post Debridement Size (cm) - Width 0 -Post Debridement Size (cm) - Depth 0 -Total Square Cm 0 -Wound/Ulcer Outcome Healed- Epithelialized [See Physician Procedure note for Specifics] Pain Scale: 0-10 Numeric [Pain] -Is Patient Pain Free? Yes Musculoskeletal: No Muscle Wasting Neurological: Cranial nerves II-XII grossly intact Psych/Mental Status: Normal Affect Debridement Note Post-Debridement Measurements/Treatment - Nurse 2 - General Ulcer CM Notes Start: 04/11/19 10:55 Freq: Status: Active Protocol: Activity Type Activity Date Activity User E-Sign Co-Sign Detail Recorded Client Recorded Date Recorded By Document 04/11/19 11:24 MW [id number] 04/11/19 11:29 MW Document 04/25/19 11:21 MW [id number] 04/25/19 11:22 MW Document 05/02/19 09:50 MW [id number] 05/02/19 09:52 MW 04/11/19 04/25/19 05/02/19 11:24 11:21 09:50 Wound Center Nurse 2 #1- R VALE CLUSTER -Time 11:25 11:21 09:51 -Correct Patient Yes Yes Yes -Correct Side, Site, Position Yes Yes Yes -Correct Procedure Yes Yes Yes -Procedure Performed Yes No No -Type of Procedure Debridement -Clinical Debridement Subcutaneous -Post Debridement Size (cm) - Length 5.3 0.1 0 -Post Debridement Size (cm) - Width 2.5 0.1 0 -Post Debridement Size (cm) - Depth 0.1 0.1 0 -Total Square Cm 13.25 0.01 0 -Wound/Ulcer Outcome Not Healed Not Healed Healed- Epithelialized -Ulcer Cleansing Rinsed/ Not Cleansed Irrigated with Saline -Foul Odor after Cleansing No No -Bioengineered Tissue No No -Bleeding Controlled with Pressure NA -Offloading No No -Treatment Response Procedure Procedure Tolerated Well Tolerated Well Pain Scale: 0-10 Numeric Is Patient Pain Free? Yes Yes Yes No debridement was completed today Assessment/Plan Active Problems (Last Updated 06/14/17 @ 09:55 by Isabel Kaur) Ulcer of right lower extremity with fat layer exposed (Chronic) Bilateral edema of lower extremity (Chronic) Peripheral edema (Chronic) Assessment: Nonhealing right lower extremity ulcer. Bilateral lower extremity edema. History of hypertension and morbid obesity. Plan: Healed. No new concerns. Compliance with compression strongly reommended. He was advised to elevate his lower extremities when seated and in bed. Avoid idle standing. Exercise as tolerated and weight loss also recommended. His questions were answered and he was advised to call with any further questions or concerns. Discharged from the wound clinic. This note was generated with [employer] dictation software. It may contain incorrect words, spelling, and punctuation that were not noted in checking the note before signing. Office Visits / Consults: [id number] OV L3 Est
== END 2019-05-07 23:59 ==
LOC: WC 09:30
PROVIDERS: PCP Nurse Practitioner Primary Care; Referring Provider Internal Medicine; Visit Provider Internal Medicine
DX: L97.812 Non-pressure chronic ulcer of other part of right lower leg with fat layer exposed (principal); R60.0 Localized edema; E66.01 Morbid (severe) obesity due to excess calories; I10 Essential (primary) hypertension
CPT/HCPCS: 11042; 29581; 99213; G0463